=== PATIENT | male | born 1960 | race Two or more races ===

== ENCOUNTER 2018-06-02 15:39 | Emergency (ER) | payer SELFPAY ==
[~2018-06-02] VITALS: Ht 162.6 cm; Wt 63.5 kg
[2018-06-02 15:43] VITALS: Ht 162.6 cm; Wt 63.5 kg
[2018-06-02 18:25] VITALS: BP 105/62
== END 2018-06-02 19:11 | disposition home or self-care (01) ==
LOC: ED 15:39 → EDBD 15:39 → ED 19:11
DX: S09.8XXA Other specified injuries of head, initial encounter (principal); S09.93XA Unspecified injury of face, initial encounter; F10.129 Alcohol abuse with intoxication, unspecified; E11.9 Type 2 diabetes mellitus without complications; W26.8XXA Contact with other sharp object(s), not elsewhere classified, initial encounter; Y93.89 Activity, other specified; Y92.89 Other specified places as the place of occurrence of the external cause; Y99.8 Other external cause status

== ENCOUNTER 2018-10-14 15:52 | Emergency (ER) | payer SELFPAY ==
[~2018-10-14] VITALS: Ht 157.5 cm; Wt 72.6 kg
[2018-10-14 16:01] VITALS: Ht 157.5 cm; Wt 72.6 kg
[2018-10-14 19:11] VITALS: BP 126/85
== END 2018-10-14 19:11 | disposition home or self-care (01) ==
LOC: ED 15:52
DX: S63.616A Unspecified sprain of right little finger, initial encounter (principal); F10.129 Alcohol abuse with intoxication, unspecified; E11.9 Type 2 diabetes mellitus without complications; W01.0XXA Fall on same level from slipping, tripping and stumbling without subsequent striking against object, initial encounter; Y93.89 Activity, other specified; Y92.89 Other specified places as the place of occurrence of the external cause; Y99.8 Other external cause status
CPT/HCPCS: Q0092

== ENCOUNTER 2018-10-19 09:18 | Inpatient (IN) | payer SELFPAY ==
[~2018-10-19] VITALS: Ht 157.5 cm; Wt 68.5 kg
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
[2018-10-19 10:30] LABS: PLATELET COUNT 133 x10^3mcL (130-400); RED CELL DISTRIBUTION WIDTH 14.2 % (11.5-14.5)
[2018-10-19 10:34] LABS: SEGMENTED NEUTROPHILS 84 % (37-75)
[2018-10-19 10:35] LABS: BAND NEUTROPHIL 0 % (0-10)
[2018-10-19 10:36] LABS: BASOPHIL 1 % (0-2); MONOCYTE 6 % (0-7)
[2018-10-19 10:37] LABS: rbc morphology (normal/abnorm) NORMAL (NORMAL)
[2018-10-19 10:38] LABS: PLATELET MORPHOLOGY PLATELETS NORMAL
--- NOTE | 2018-10-19 10:40 | NUR ---
PT MEDICATED PER DOCTORS ORDERS
[2018-10-19 10:42] LABS: CALCIUM 8.6 mg/dL (8.5-10.1); CARBON DIOXIDE 23.6 mmol/L (21-32); CHLORIDE SERUM 101 mmol/L (98-107); CREATININE SERUM 0.6 mg/dL (0.7-1.3); GFR1 > 60 mL/min; GLUCOSE SERUM 119 mg/dL (74-106); POTASSIUM SERUM 3.5 mmol/L (3.5-5.1); SODIUM SERUM 141 mmol/L (136-145)
[2018-10-19 10:46] LABS: ALBUMIN 3.5 g/dL (3.4-5.0); ALKALINE PHOSPHATASE 204 U/L (46-116); ALT/SGPT 69 U/L (16-63); AST/SGOT 188 U/L (15-37); BILIRUBIN TOTAL 0.95 mg/dL (0.20-1.00); LIPASE 197 IU/L (73-393); TOTAL PROTEIN, SERUM 7.5 g/dL (6.4-8.2)
--- NOTE | 2018-10-19 11:52 | NUR ---
DR LOZANO AT BEDSIDE TO DISCUSS PLAN OF CARE
--- NOTE | 2018-10-19 12:29 | NUR ---
MEGHAN MCKEON RN ASKING FOR HELP FROM ROOM, PT SEEN HANGING FROM [employer] TRYING TO BALANCE ON WET FLOOR. PT STATES HE WAS URINATING IN URINAL AND URINATED ON FLOOR AND SLIPPED. FLOOR VISIBLY WET. PT DENIES HITTING HEAD OR INJURY. PT'S BED WAS IN LOWEST POSITION WITH BED RAILS RAISED PRIOR TO FALL. PT WAS ON FULL CM. PT WAS STILL ATTACHED TO MONITORS WHEN HE FELL. PT DID NOT ASK FOR ASSISTANCE PRIOR TO GETTING OUT OF BED TO URINATE. CALL LIGHT WAS ON BED AND PT WAS EDUCATED TO USE CALL LIGHT WHEN IN NEED OF ASSISTANCE. PT WAS AAOX4 PRIOR TO FALL.
--- NOTE | 2018-10-19 13:09 | NUR ---
PT BACK FROM CT VIA [facility]
[2018-10-19 13:42] LABS: MAGNESIUM 1.4 mg/dL (1.8-2.4); PHOSPHOROUS 2.7 mg/dL (2.5-4.9)
[2018-10-19 13:46] LABS: CHOLESTEROL/HDL RATIO 5.4
[2018-10-19 13:48] LABS: FREE T4 0.96 ng/dL (0.76-1.46); FREE THYROXINE INDEX 2.8 ug/dL (1.4-4.5); T4(THYROXINE) 9.2 ug/dL (4.7-13.3)
[2018-10-19 13:53] LABS: T3 TOTAL 1.43 ng/mL
[2018-10-19 14:07] LABS: microscopic required? YES; urine erythrocyte 2+ (NEGATIVE)
[2018-10-19 14:16] LABS: AMPHETAMINE QUAL UR POSITIVE (See below)
--- NOTE | 2018-10-19 14:17 | NUR ---
PT LAYING ON GURNEY IN POSTION OF COMFORT. NAD. RESP E/U. PT ON FULL CM. CALL LIGHT WITHIN REACH. SIDE RAILS UP. BED IN LOWEST POSITION. PT IN FULL VIEW OF NURSE STATION.
--- NOTE | 2018-10-19 14:32 | NUR ---
RECEIVED PT FROM ED VIA [employer], PT IS DROWSY, ABLE TO FOLLOW SIMPLE COMMANDS, ORIENTED TO PERSON, PLACE AND BIRTHDATE. NO SOB NOTED. LUNG SOUNDS CTA. DENIES CHEST PAIN/PRESSURE, HR AT 99 ON THE MONITOR. DENIES ABDOMINAL DISCOMFORT. W/ OCCITAN 16 SHERMAN CATHETER DRAINING W/ YELLOW COLORED URINE. W/ GENERALIZED BODY SCATTERED RASH (PINK), NAWAF. IV SITE PATENT AND INTACT. SIDE RAILS UPX2. CALL LIGHT ON REACH. PRIMARY NURSE LINO AT BEDSIDE FOR CONTINUITY OF CARE
[2018-10-19 14:55] VITALS: BP 150/89
[2018-10-19 15:05] VITALS: Ht 157.5 cm; Wt 68.5 kg
--- NOTE | 2018-10-19 16:10 | NUR ---
ELIMITE 5% APPLIED TO ENTIRE BODY, WILL ENDORSE TO NIGHT RN TO REMOVE AT 4:10 AM ON 10/20/18
[2018-10-19 17:24] VITALS: BP 125/87
--- NOTE | 2018-10-19 18:32 | NUR ---
NO ACUTE CHANGES AT THIS TIME, NO ACUTE RESP DISTRESS OR SOB NOTED. 1:1 AT BEDSIDE FOR SAFETY, BY NURSING STATION. REMAINS ON CONTACT ISOLATION. BREATHING EVEN AND UNLABORED ON RA, NO ACUTE RESP DISTRESS OR SOB NOTED, DENIES ANY CP OR PRESSURE. WILL ENDORSE TO INCOMING RN.
--- NOTE | 2018-10-19 19:50 | NUR ---
DROWSY. ORIENTED X 2. TELE #25, ST, HR 102. LUNGS CLEAR ON RA. BREATHING E/U. PULSES PALPABLE. NO EDEMA. BOWEL SOUNDS ACTIVE. SHERMAN IN PLACE DRAINING YELLOW URINE. GENERALIZED RASH NOTED. DENIES PAIN. IV TO LAC, PATENT AND INFUSING. CONTACT PRECAUTIONS IN PLACE FOR POSSIBLE SCABIES. SITTER AT BEDSIDE FOR SAFETY. BED IN LOWEST POSITION, 2 SIDE RAILS UP, CALL LIGHT IN REACH. INSTRUCTED TO CALL FOR ASSISTANCE.
[2018-10-19 20:22] VITALS: BP 146/97
--- NOTE | 2018-10-19 21:36 | NUR ---
PT NOTED WITH TREMORS TO HANDS, MEDICATED WITH PRN ATIVAN IVP WITH GOOD EFFECT. NO ACUTE DISTRESS NOTED.
--- NOTE | 2018-10-20 02:05 | NUR ---
RESTING IN BED WITH EYES CLOSED. BREATHING E/U. NO ACUTE DISTRESS NOTED. WILL CONTINUE TO MONITOR.
[2018-10-20 06:05] VITALS: BP 136/896
--- NOTE | 2018-10-20 06:59 | NUR ---
BATH WITH SOAP AND WATER RENDERED. PT EXPERIENCED INTERMITTENT MILD HAND TREMORS THROUGHOUT SHIFT. NO ACUTE DISTRESS NOTED. WILL ENDORSE TO ONCOMING RN
--- NOTE | 2018-10-20 07:30 | NUR ---
PT ENDORSE TO ME THIS MORNING. LAYING IN BED RESTING. DROWSY, ORIENTED X2. REMAINS ON CONTACT ISOLATION. BREATHING EVEN AND UNLABORED ON RA, NO ACUTE RESP DISTRESS OR SOB NOTED. TELE 9 SR NOTED, HR 91. NO SIGN OF CHEST PAIN OR PRESSURE NOTED. BOWEL SOUNDS ACTIVE IN ALL FOUR QUADS. LAST BM 10/19. GEN WEAKNESS NOTED, BED ALARM ON/ BY NURSING STATION. GENERALIZED RASH NOTED/ ELIMITE WAS WASHED OFF THIS AM (4 AM). SHERMAN INTACT AND PATENT/ DRAINING DARK YELLOW URINE. IV TO THE LAC INTACT AND PATENT/ NO RENDESS OR SWELLING NOTED. WILL CONTINUE TO MONITOR. CALL LIGHT IN REACH.
--- NOTE | 2018-10-20 08:28 | NUR ---
PT IS SITTING UP IN BED HAVING HIS BREAKFAST, HAVING TREMORS AND IS AGITATED, MEDICATED PER MAR, CALL LIGHT IN REACH, BED IN LOW POSITION. BY NURSING STATION. WILL CONTINUE TO MONITOR.
[2018-10-20 08:33] VITALS: BP 123/82
[2018-10-20 13:05] VITALS: BP 130/82
[2018-10-20] MEDS ORDERED: LIB25 PO (13:11)
--- NOTE | 2018-10-20 14:12 | NUR ---
PER DR. BERUMEN REMOVED IV TO THE LAC, CATHETER TIP INTACT. REMOVED SHERMAN, TOLERATED WELL. PT DAUGHTER SHAKEEL WILL BE PICKING PT UP. PENDING D/C HOME WITH DAUGHTER.
--- NOTE | 2018-10-20 14:30 | NUR ---
HALLIE LALO ARRIVED TO PICK PT UP. WENT OVER DISCHARGE INSTRUCTIONS, NEW AND CONTINUED MEDS, AND FOLLOW UP APPT. PT GAVE US PERMISSION FOR DAUGHTER TO SIGN PAPER WORK AND REVIEW LABS WITH HIS DAUGHTER LALO. DAUGHTER LALO AGREED WITH ALL PAPER WORK AND SIGNED ALL DOCUMENTS.
--- NOTE | 2018-10-20 14:30 | NUR ---
DAUGHTER CAME OUT TO NURSING STATION TO ASK A QUESTION ABOUT THE PT, WHEN WE WALKED BACK INTO THE ROOM PT WAS ON KNEELING ON THE FLOOR BY THE BED. ASSISTED PT BACK TO CHAIR, DENIES ANY DISCOMFORT TO BLE.DR. JARRELL AWARE. ASSISTED PT BACK TO WHEEL CHAIR, REBEKAH LUNDY WHEELED PT DOWN TO FRONT OF HOSPTIAL. DAUGHTER WILL BE DRIVING PT TO [facility] (PER DAUGHTER). PT BREATHING EVEN AND UNLABORED ON RA. DENIES ANY CP OR PRESSURE. PT DISCHARGE.
== END 2018-10-20 14:45 | disposition home or self-care (01) | DRG 93 ==
LOC: ED 09:18 → DU 12:42
PROVIDERS: Emergency Medicine; ADMIT Internal Medicine
DX: G92 Toxic encephalopathy (principal); E86.0 Dehydration; R74.0 Nonspecific elevation of levels of transaminase and lactic acid dehydrogenase [LDH]; E78.5 Hyperlipidemia, unspecified; E02 Subclinical iodine-deficiency hypothyroidism; E83.42 Hypomagnesemia; F10.120 Alcohol abuse with intoxication, uncomplicated; Y90.9 Presence of alcohol in blood, level not specified; Z59.0 Homelessness
CPT/HCPCS: 84439; G0378; G0480; J2060; J7030